=== PATIENT | female | born 1980 | race Caucasian/White ===

== ENCOUNTER → 2021-05-27 12:45 | Outpatient (CLI) | payer OTHER, SELFPAY ==
--- NOTE | 2021-05-27 12:51 | DI.US.S_ITS ---
PROCEDURE: US OB <= 14 WEEKS FETUS INDICATIONS: DATING. INVITRO FERTILIZATION OF 6 DAY FETUS ON 05/01/21 OUTSIDE/PRIOR DATING DATA: LMP-based estimated date of delivery (ANABELLA): 01/16/2021 by IVF transfer of 05/01/2021. First dating scan (date and location): May 27, 2021. Estimated date of delivery (ANABELLA) from first dating scan: January 16, 2022. TECHNIQUE: Real-time scanning was performed of the fetus and maternal pelvic organs, with image documentation. Endovaginal scanning was also performed to better visualize the fetus and maternal ovaries. COMPARISON: None. FINDINGS: Embryo: [place]-rump length measures 7 mm corresponding to 6 weeks 4 days. Heart rate: 114 beats per minute Measurement variability in dating: +/- 4 weeks by LMP, +/- 7 days by mean sac diameter (use before 6 weeks gestation if crown-rump length not able to be measured), +/- 5 days by crown-rump length (up to 8 weeks 6 days gestation), +/- 7 days by crown-rump length (up to 13 weeks 6 days gestation). Maternal organs: Ovaries not well seen. . 4 intramural fibroids are present largest measuring up to 3 cm. IMPRESSION: 6 week 4 day single living IUP. Dictated by: Chong Tom [facility] Interpreted: Harsh Schultz MD on 05/27/2021 at 14:44 Transcribed by: FRANCISCA on 05/27/2021 at 14:47 Approved by: Harsh Schultz M.D. on 05/27/2021 at 15:01
== END ==
PROVIDERS: Referring Provider Obstetrics & Gynecology; Visit Provider Obstetrics & Gynecology
DX: O34.11 Maternal care for benign tumor of corpus uteri, first trimester (principal); D25.1 Intramural leiomyoma of uterus; Z31.83 Encounter for assisted reproductive fertility procedure cycle; Z3A.01 Less than 8 weeks gestation of pregnancy
CPT/HCPCS: 76801; 76817

== ENCOUNTER 2021-06-01 12:47 | Emergency (ER) | payer OTHER, SELFPAY ==
[2021-06-01 13:05] VITALS: BP 141/84; PULSE 88; RESP 16; TEMP 36.9; O2SAT 100; BMI 26.1
--- NOTE | 2021-06-01 13:52 | ED_ITS ---
HPI - General Chief complaint: Urogenital-Female Stated complaint: Possible Miscarriage Time Seen by Provider: 06/01/21 13:32 Source: patient Mode of arrival: Ambulatory Limitations: no limitations History of Present Illness HPI Narrative: 40-year-old woman with 6 week 4 day intrauterine IUP via a in- vitro fertilization with single embryo transfer done on May 01 presents with vaginal bleeding. She notes that 530 this morning she got up to void noted an apricot size bit of tissue/blood/mucus without any associated cramping. At 9am she had another small amount of spotting and continues to have a small amount of brownish discharge appreciated on panty liner. No fevers, cough, chills, abdominal pain. Breasts are full and tender. She was beginning to notice some mild nausea yesterday but is not particularly troubled by this today. No headaches and no lower extremity edema. Expected Date of Delivery: 01/25/22 Review of Systems Review of Systems Narrative: Remainder of complete review of systems is otherwise unremarkable except for that included in the HPI. PMFSH - Past Medical History Additional medical history: Uterine fibroids, endometriosis ANIMAL CARE TECHNICIAN history: Reports Other (In-vitro fertilization with single embryo transfer May 01, 2021) Expected Date of Delivery: 01/25/22 Exam Narrative Exam Narrative: General: Alert appropriate in no acute distress Respiratory: Able to speak in full sentences, no obvious respiratory distress Skin: No obvious rashes, warm and dry Neurologic: Grossly intact no obvious asymmetries or abnormalities Psych: appropriate insight and affect, cooperative Bedside ultrasound: Bladder is full Transabdominal scanning reveals a large uterus with multiple fibroids Viable intrauterine fetus with heart rate 150-160 is appreciated With limitations of transabdominal scanning I an unable to determine if there is a small subchorionic bleed however no obvious large subchorionic hemorrhage is appreciated. Initial Vital Signs Initial Vital Signs: Vital Signs Temperature 98.4 F 06/01/21 13:05 Pulse Rate 88 06/01/21 13:05 Respiratory Rate 16 06/01/21 13:05 Blood Pressure 141/84 H 06/01/21 13:05 Pulse Oximetry 100 06/01/21 13:05 Course Vital Signs Vital signs: Vital Signs - 8 hr 06/01/21 13:05 Temperature 98.4 F Pulse Rate 88 Respiratory Rate 16 Blood Pressure 141/84 H Pulse Oximetry 100 MDM - OB/Uterine Contractions MDM Narrative Medical decision making narrative: 40-year-old woman with IVF currently 6 weeks 4 days with vaginal bleeding today no cramping. Bedside ultrasound done in the emergency department shows viable intrauterine fetus with heart rate in the 150-160 range without obvious subchorionic hemorrhage. Amniotic fluid volume seems appropriate for gestational age At patient request, phone call was made to her provider and fertility clinic in [place] at [phone]. Positive findings were related. Will fax copy of this note to same clinic at [phone] Discharge Plan Departure Patient Disposition: Home Clinical Impression: Miscarriage, threatened, early Qualifiers: Weeks of gestation: less than 8 weeks Qualified Code(s): Z3A.01 - Less than 8 weeks gestation of Instructions: DI for Threatened Activity Restrictions/Additional Instructions: Thank you for coming in today It is so exciting to be able to see your happy growing baby with a reassuring heart rate exactly where it is supposed to be. Any time there is vaginal bleeding we are always concerned with miscarriage. I have talked to Dina, the nurse in the fertility clinic. At this time we do not need to do further workup. Pelvic rest is recommended -no orgasm and no fingers, toys or penis is in your vagina. Please keep your scheduled follow-up ultrasound appointment. I hope that you stop by the ER in about 7 months to introduce me to your new baby. Good luck with the remainder of this .
== END 2021-06-01 14:35 | disposition home or self-care (01) ==
PROVIDERS: Emergency Provider Emergency Medicine
DX: O20.0 Threatened abortion (principal); Z3A.01 Less than 8 weeks gestation of pregnancy
CPT/HCPCS: 99281; 99283

== ENCOUNTER → 2021-06-04 09:58 | Outpatient (CLI) | payer OTHER, SELFPAY ==
--- NOTE | 2021-06-04 09:59 | DI.US.S_ITS ---
PROCEDURE: US OB <= 14 WEEKS FETUS INDICATIONS: GROWTH OUTSIDE/PRIOR DATING DATA: Last menstrual period (LMP): April 25, 2021 LMP-based estimated date of delivery (ANABELLA): January 16, 2022 First dating scan (date and location): May 27, 2021 Estimated date of delivery (ANABELLA) from first dating scan: January 16, 2022 TECHNIQUE: Real-time scanning was performed of the fetus and maternal pelvic organs, with image documentation. Endovaginal scanning was also performed to better visualize the fetus and maternal ovaries. COMPARISON: [facility], , OB <= 14 WEEKS FETUS, 05/27/2021, 13:05. FINDINGS: Embryo: Single living intrauterine identified. Yolk sac and pole are identified. [place]-rump length measures 1.3 centimeters corresponding to ultrasound estimated gestational age of 7 weeks 5 days with expected age of 7 weeks 4 days based on initial ultrasound. Heart rate: 145 beats per minute Measurement variability in dating: +/- 4 weeks by LMP, +/- 7 days by mean sac diameter (use before 6 weeks gestation if crown-rump length not able to be measured), +/- 5 days by crown-rump length (up to 8 weeks 6 days gestation), +/- 7 days by crown-rump length (up to 13 weeks 6 days gestation). Maternal organs: Not well seen and cannot be evaluated. Uterine fibroids again identified. IMPRESSION: Single living intrauterine with appropriate interval growth. Dictated by: Meme Fernandes MD, PhD on 06/04/2021 at 12:15 Approved by: Meme Fernandes MD, PhD on 06/04/2021 at 12:17
== END ==
PROVIDERS: Referring Provider Obstetrics & Gynecology; Visit Provider Obstetrics & Gynecology
DX: Z34.01 Encounter for supervision of normal first pregnancy, first trimester (principal); Z3A.01 Less than 8 weeks gestation of pregnancy
CPT/HCPCS: 76801; 76817

== ENCOUNTER → 2021-07-16 13:52 | Outpatient (CLI) | payer OTHER, SELFPAY ==
[2021-07-16 14:42] LABS: Add Manual Diff / Slide Review NO; Basophils Absolute Auto 0 /uL (0-100); Basophils Percent Auto 0.3 % (0-2); Eosinophils Absolute Auto 200 /uL (0-450); Eosinophils Percent Auto 2.3 % (2-4); Hematocrit 38.6 % (36-46); Hemoglobin 12.9 g/dL (12.0-16.0); Lymphocytes Absolute Auto 2100 /uL (1100-4500); Lymphocytes Percent Auto 23.3 % (25-40); Mean Corpuscular HGB Conc 33.5 % (30-36); Mean Corpuscular Hemoglobin 31.2 PG (26-34); Mean Corpuscular Volume 93.1 fL (80-100); Monocytes Absolute Auto 500 /uL (0-900); Monocytes Percent Auto 5.9 % (3-14); Neutrophils Absolute Auto 6300 /uL (1500-7000); Neutrophils Percent Auto 68.2 % (50-75); Platelet Count 268 X10^3/uL (150-400); Red Blood Cell Count 4.15 X10^6/uL (4.0-5.2); Red Cell Distribution Width 12.6 % (11.6-14.8); White Blood Cell Count 9.2 X10^3/uL (4.5-11.0)
[2021-07-17 06:08] LABS: RPR Screen Non Reactive (Non Reactive)
[2021-07-17 16:15] LABS: Varicella IgG Antibody 708 index (Immune >165)
[2021-07-17 16:52] LABS: HIV 1 & 2 Ab/Ag 4th Gen Combo NEGATIVE (NEGATIVE); Hep C Virus Ab w/Reflex Quant NEGATIVE s/c (NEGATIVE); Hepatitis B Surface Antigen NEGATIVE s/c (NEGATIVE); Rubella Antibody IgG 22.6 IU/mL (>15)
== END ==
PROVIDERS: Referring Provider Obstetrics & Gynecology; Visit Provider Obstetrics & Gynecology
DX: Z34.01 Encounter for supervision of normal first pregnancy, first trimester (principal); Z3A.13 13 weeks gestation of pregnancy
CPT/HCPCS: 36415; 80055; 81420; 86787; 86803; 86850; 86900; 86901; 87389

== ENCOUNTER → 2021-08-19 13:33 | Outpatient (CLI) | payer OTHER, SELFPAY ==
[2021-08-19 14:49] LABS: Appearance Urine UA CLEAR; Bilirubin Urine UA NEGATIVE (NEGATIVE); Color Urine UA YELLOW; Glucose Urine UA NEGATIVE (Negative); Ketones Urine UA NEGATIVE (NEGATIVE); Leukocyte Esterase Urine UA NEGATIVE (NEGATIVE); Nitrite Urine UA NEGATIVE (Negative); Occult Blood Urine UA NEGATIVE (Negative); Protein Urine UA NEGATIVE (Negative); Urobilinogen Urine UA 0.2 E.U./dL (0.2)
== END ==
PROVIDERS: Visit Provider Obstetrics & Gynecology
DX: Z34.01 Encounter for supervision of normal first pregnancy, first trimester (principal)
CPT/HCPCS: 81003; 87086

== ENCOUNTER → 2021-08-19 14:00 | Outpatient (CLI) | payer OTHER, SELFPAY ==
[2021-08-21 21:41] LABS: AFP Value 46.7 ng/mL (.); Gest Age on Col Date 18.6 weeks (.); Gestational Age EDD (.); Insulin Dep Diabetes No (.); OSBR Risk 1IN 9540 (.); Results Report (.); Test Results *Screen Negative* (.)
== END ==
PROVIDERS: Referring Provider Obstetrics & Gynecology; Visit Provider Obstetrics & Gynecology
DX: Z34.02 Encounter for supervision of normal first pregnancy, second trimester (principal); Z3A.18 18 weeks gestation of pregnancy
CPT/HCPCS: 36415; 81003; 82105; 87086

== ENCOUNTER → 2021-10-15 11:27 | Outpatient (CLI) | payer OTHER, SELFPAY ==
[2021-10-15 12:54] LABS: Hematocrit 36.5 % (36-46); Hemoglobin 12.1 g/dL (12.0-16.0)
[2021-10-15 13:43] LABS: GTT (PREG) 1 Hour PP 50gm Dose 144 mg/dL (76-139)
== END ==
PROVIDERS: Referring Provider Obstetrics & Gynecology; Visit Provider Obstetrics & Gynecology
DX: Z34.02 Encounter for supervision of normal first pregnancy, second trimester (principal); Z3A.25 25 weeks gestation of pregnancy
CPT/HCPCS: 36415; 82950; 85014; 85018

== ENCOUNTER 2021-12-04 11:57 | Outpatient (CLI) | payer OTHER, SELFPAY | END 2021-12-04 12:35 | disposition home or self-care (01) | LOC: LABOR 12:29 → OB 12-09 12:40 | PROVIDERS: Referring Provider Obstetrics & Gynecology; Visit Provider Obstetrics & Gynecology | DX: O09.513 Supervision of elderly primigravida, third trimester (principal); Z3A.33 33 weeks gestation of pregnancy | CPT/HCPCS: 59025; G0378; G0379 ==

== ENCOUNTER 2021-12-11 12:04 | Outpatient (CLI) | payer OTHER, SELFPAY | END 2021-12-11 12:50 | disposition home or self-care (01) | LOC: LABOR 12:50 → OB 12-12 09:37 | PROVIDERS: Referring Provider Obstetrics & Gynecology; Visit Provider Obstetrics & Gynecology | DX: O09.513 Supervision of elderly primigravida, third trimester (principal); Z3A.34 34 weeks gestation of pregnancy | CPT/HCPCS: 59025; G0378; G0379 ==

== ENCOUNTER 2021-12-18 12:58 | Outpatient (CLI) | payer OTHER, SELFPAY ==
--- NOTE | 2021-12-18 14:00 | PM.OBTRLD ---
Visit Information Visit Information Date of evaluation: 12/18/21 Primary OB Provider: Gretta Rizzo Reason for Evaluation: Yes non-stress test PFSH Medical History (Updated 07/16/21 @ 13:42 by Gretta Rizzo MD) Abnormal Pap smear of cervix (~10/2019) AMA (advanced maternal age) primigravida 35+ Endometriosis HPV in female (~2019) In vitro fertilization (~05/01/21) Myelomeningocele (~1981) Twin , mate liveborn Uterine fibroid Surgical History (Updated 06/17/21 @ 04:25 by Gretta Rizzo MD) History of colposcopy (~10/2019) History of laparoscopy S/P laparoscopy Status post surgery (~1981) [place] teeth extracted Family History (Updated 06/10/21 @ 13:05 by Karen Ortega RN) Father Old age COVID-19 History of hip replacement Mother Uterine fibroid Depression History of ETOH abuse Grandfather Myocardial infarction Grandmother Cancer History of gastric cancer Grandfather No problems noted. Grandmother No problems noted. Family/Other Cancer Sister PCOS (polycystic ovarian syndrome) History of hysterectomy Brother No problems noted. Sister No problems noted. Social History marital status: household members: spouse lives independently: Yes pets and animals: Yes (Dogs x 2) education level: college (BA Degree) occupational status: unemployed current occupational exposures/hazards: No Previous occupational history: Realtor; worked in Hospitality special jess needs: No Smoking Status: Former smoker (Early 20's socially, randomly : for 2 years) second hand exposure: No alcohol intake: former (pre- : social ) substance use type: does not use Evaluation Evaluation Baseline heart rate: 130 Variability: Moderate (11-25) monitor accelerations: Present Monitor Decelerations: Absent Category of Tracing: Reactive Diagnosis, Plan/Disposition Plan/Disposition Plan: Assessment: 41 year old at 35 wks gest Reactive NST Plan: F/U 1 wk for repeat NST OB Disposition: home
== END 2021-12-18 13:45 | disposition home or self-care (01) ==
LOC: LABOR 14:17 → OB 12-24 16:28
PROVIDERS: Referring Provider Obstetrics & Gynecology; Visit Provider Obstetrics & Gynecology
DX: O09.513 Supervision of elderly primigravida, third trimester (principal); O34.13 Maternal care for benign tumor of corpus uteri, third trimester; Z3A.35 35 weeks gestation of pregnancy; Z34.83 Encounter for supervision of other normal pregnancy, third trimester
CPT/HCPCS: 59025; 87653; G0378; G0379

== ENCOUNTER → 2021-12-18 14:48 | Outpatient (CLI) | payer OTHER, SELFPAY ==
[2021-12-19 09:42] LABS: Strep Grp B PCR NEG for Grp B Strep
== END ==
PROVIDERS: Visit Provider Obstetrics & Gynecology
DX: Z34.83 Encounter for supervision of other normal pregnancy, third trimester (principal); Z3A.35 35 weeks gestation of pregnancy
CPT/HCPCS: 87653